=== PATIENT | male | born 1950 | race Caucasian/White ===

== ENCOUNTER 2021-03-27 01:09 | Day surgery (SDC) | payer MEDICARE, SELFPAY ==
[2021-03-18 14:25] VITALS: BMI 31.6
[2021-03-27 06:19] VITALS: BP 183/95; PULSE 91; RESP 16; TEMP 36.6; O2SAT 96; BMI 30.5
[2021-03-27 06:29] LABS: Glucose Point of Care 131 mg/dl (65-105)
[2021-03-27] MEDS: LACTATED RINGERS 1,000 ML 150 ML IV CONT (06:30)
--- NOTE | 2021-03-27 07:14 | WPDGICN ---
Assessment and Plan Assessment and plan (1) History of colon polyps: Code(s): Z86.010 - Personal history of colonic polyps Status: Acute Assessment and Plan: Patient with multiple colon polyps resected 3 years ago. Plan is for surveillance colonoscopy at this time. Further recommendations will be given after endoscopy. (2) Family history of colon cancer in mother: Code(s): Z80.0 - Family history of malignant neoplasm of digestive organs Status: Acute Assessment and Plan: Patient's mother had colon cancer for this reason follow-up colonoscopy should be performed at least at 5 year intervals GI Consult Note Consult date/time: 03/27/21 07:14 HPI: Marty Todd is a 70 year old male Presents for surveillance colonoscopy. Patient's last colonoscopy 2016 revealed multiple relatively large colon polyps. These were benign adenomas. patient currently states that his weight appetite bowel movements are normally has had no bleeding. His family history is Significant his mother had colon cancer. Review of Systems Review of Systems: All systems reviewed & are unremarkable except as noted in HPI and below PMFSH Past Medical History Medical History Arthritis Atrial fibrillation Cataract H/O: HTN (hypertension) Hepatitis C antibody test negative (~01/22/17) Pneumonia (~2015) Surgical History Surgical History History of cataract extraction Status post ablation of atrial fibrillation Status post catheter ablation of atrial fibrillation Family History Family History Mother Carcinoma of colon Other CHF (congestive heart failure), NYHA class I COPD (chronic obstructive pulmonary disease) Chest pain Coronary embolism Diabetes mellitus Family history of elevated blood lipids Family history of malignant neoplasm Hearing loss Heart disease Hyperlipidemia, unspecified Hypertension No family history of cardiovascular disease Social History Social History Smoking status: Never smoker Alcohol intake: current Drinks per week: 7 Alcohol use details: GLASSES WINE Substance use: never Substance use type: does not use Living arrangements: with family Spiritual care concerns: No Meds Home Medications and Allergies Home Medications Medication Instructions Recorded Confirmed Type cholecalciferol (vitamin D3) 25 1,000 unit PO DAILY 07/03/19 03/27/21 History mcg (1,000 unit) capsule diltiazem HCl 180 mg 180 mg PO DAILY 07/03/19 03/27/21 History capsule,extended release 24 hr rivaroxaban 20 mg tablet 20 mg PO HS 07/03/19 03/27/21 History pen needle, diabetic 31 gauge x #100 each 01/15/20 03/27/21 Rx 5/16 tizanidine 4 mg capsule 4 mg PO TID PRN #30 cap 08/13/20 03/27/21 Rx atorvastatin 20 mg tablet 20 mg PO QHS #90 tablet 10/29/20 03/27/21 Rx magnesium 200 mg tablet 200 mg PO DAILY 10/29/20 03/27/21 History semaglutide 1 mg/dose (4 mg/3 mL) 1 mg SUBCUT WEEKLY 90 Days #9.75 ml 01/29/21 03/27/21 Rx subcutaneous pen injector dapagliflozin [Farxiga] 10 mg PO QAM 03/18/21 03/27/21 History insulin glargine [Lantus Solostar 15 unit SUBCUT HS 03/18/21 03/27/21 History U-100 Insulin] metformin 2,000 mg PO QAM 03/18/21 03/27/21 History metoprolol succinate 75 mg PO BID 03/18/21 03/27/21 History quinapril 20 mg PO DAILY 03/18/21 03/27/21 History Allergies Allergy/AdvReac Type Severity Reaction Status Date / Time No Known Allergies Allergy Verified 03/27/21 06:16 Vital Signs Vital Signs - 24 hr 03/27/21 06:19 Temperature 97.8 F Pulse Rate 91 Respiratory Rate 16 Blood Pressure 183/95 H Pulse Oximetry 96 Exam Narrative: Physical exam reveals patient to be alert. Vital signs stable. HEENT exam
--- NOTE | 2021-03-27 07:23 | WPDANESEPPF ---
Anes - Initial Pre Proc Eval Procedure: Operation Date: 03/27/21 07:30 Proposed Procedures p Screening Colonoscopy - Walter Bella MD Date/Time: 03/27/21 07:23 Surgeon: Walter Bella MD Pre Op Diagnosis: hx of colon polyps Patient Data Age: 70 Gender: M Height: 1.78 m Weight: 96.5 kg Last Vital Signs Temp 97.8 F 03/27/21 06:19 Pulse 91 03/27/21 06:19 Resp 16 03/27/21 06:19 BP 183/95 H 03/27/21 06:19 Pulse Ox 96 03/27/21 06:19 Allergies Allergy/AdvReac Type Severity Reaction Status Date / Time No Known Allergies Allergy Verified 03/27/21 06:16 Home Medications Medication Instructions Recorded Confirmed Type cholecalciferol (vitamin D3) 25 1,000 unit PO DAILY 07/03/19 03/27/21 History mcg (1,000 unit) capsule diltiazem HCl 180 mg 180 mg PO DAILY 07/03/19 03/27/21 History capsule,extended release 24 hr rivaroxaban 20 mg tablet 20 mg PO HS 07/03/19 03/27/21 History pen needle, diabetic 31 gauge x #100 each 01/15/20 03/27/21 Rx 5/16 tizanidine 4 mg capsule 4 mg PO TID PRN #30 cap 08/13/20 03/27/21 Rx atorvastatin 20 mg tablet 20 mg PO QHS #90 tablet 10/29/20 03/27/21 Rx magnesium 200 mg tablet 200 mg PO DAILY 10/29/20 03/27/21 History semaglutide 1 mg/dose (4 mg/3 mL) 1 mg SUBCUT WEEKLY 90 Days #9.75 ml 01/29/21 03/27/21 Rx subcutaneous pen injector dapagliflozin [Farxiga] 10 mg PO QAM 03/18/21 03/27/21 History insulin glargine [Lantus Solostar 15 unit SUBCUT HS 03/18/21 03/27/21 History U-100 Insulin] metformin 2,000 mg PO QAM 03/18/21 03/27/21 History metoprolol succinate 75 mg PO BID 03/18/21 03/27/21 History quinapril 20 mg PO DAILY 03/18/21 03/27/21 History Laboratory Tests 03/27/21 06:21 POC Capillary Glucose 131 mg/dl H mg/dl (65-105) Patient hx anesthesia problems: none Family hx anesthesia problems: none [facility] Past Medical History Medical History Arthritis Atrial fibrillation Cataract H/O: HTN (hypertension) Hepatitis C antibody test negative (~01/22/17) Pneumonia (~2015) Surgical History Surgical History History of cataract extraction Status post ablation of atrial fibrillation Status post catheter ablation of atrial fibrillation Family History Family History Mother Carcinoma of colon Other CHF (congestive heart failure), NYHA class I COPD (chronic obstructive pulmonary disease) Chest pain Coronary embolism Diabetes mellitus Family history of elevated blood lipids Family history of malignant neoplasm Hearing loss Heart disease Hyperlipidemia, unspecified Hypertension No family history of cardiovascular disease Social History Social History Smoking status: Never smoker Alcohol intake: current Drinks per week: 7 Alcohol use details: GLASSES WINE Substance use: never Substance use type: does not use Living arrangements: with family Spiritual care concerns: No Anes - Eval Final PreProcedure Day of Procedure 03/27/21 07:23 Patient weight: obese Heart: regular rate and rhythm Lungs: clear to auscultation Airway: Mallampati scale class III Neurological: alert and oriented Last oral intake: >/= 8 hours ASA classification: III Emergent: no Anesthetic plan: proceed Anesthesia type and monitoring: general GIVS and standard monitoring Informed Consent: The patient's anesthetic plan and its attendant risks and benefits were discussed with the patient/family/POA. Questions were solicited and answers provided to the satisfaction of the patient/family/POA.
[2021-03-27 07:57] VITALS: BP 114/72; PULSE 82; RESP 17; O2SAT 98
[2021-03-27 08:07] VITALS: BP 128/85; PULSE 78; RESP 18; O2SAT 98
[2021-03-27 08:17] VITALS: BP 137/90; PULSE 75; RESP 21; O2SAT 99
[2021-03-27 08:17] LABS: Glucose Point of Care 124 mg/dl (65-105)
== END 2021-03-27 08:30 | disposition home or self-care (01) ==
PROVIDERS: PCP Family Medicine; Visit Provider Internal Medicine Gastroenterology
PROC: 0DJD8ZZ Inspection of Lower Intestinal Tract, Via Natural or Artificial Opening Endoscopic (ICD-10-PCS; CPT 45378; principal; 2021-03-27 07:30)
DX: Z12.11 Encounter for screening for malignant neoplasm of colon (principal); D12.2 Benign neoplasm of ascending colon; D12.5 Benign neoplasm of sigmoid colon; I48.20 Chronic atrial fibrillation, unspecified; I10 Essential (primary) hypertension; K64.8 Other hemorrhoids; Z80.0 Family history of malignant neoplasm of digestive organs; Z98.49 Cataract extraction status, unspecified eye; Z79.4 Long term (current) use of insulin
CPT/HCPCS: 45385; 82948; 88305; J2704; J7120

== ENCOUNTER 2022-01-10 10:03 | Emergency (ER) | payer MEDICARE, SELFPAY ==
--- NOTE | 2022-01-10 10:09 | ED.SKABFB ---
HPI - Skin/Abscess/Foreign Bdy General Chief complaint: Skin/Abscess/Foreign Body Stated complaint: red and painful spots on right leg Time Seen by Provider: 01/10/22 10:15 Source: patient, RN notes reviewed and old records reviewed Mode of arrival: ambulatory Limitations: no limitations History of Present Illness HPI narrative: 71 year old male presents to [facility] care with complaints of redness swelling and tenderness to skin on anterior aspect of right lower leg which he first noticed last evening. Patient reports no tenderness to the calf of his right leg or any warmth noted. Patient is diabetic and is on daily Xarelto for cardiac history of atrial fibrillation and cardio ablations. Patient has not acute swelling to his foot with pulses palpable. No drainage or weeping noted from his right lower leg. MD complaint: other (cellulitis right lower leg) Location: RLE (anterior aspect of right lower leg) Related Data Home Medications Medication Instructions Recorded Confirmed cholecalciferol (vitamin D3) 25 1,000 unit PO DAILY 07/03/19 12/15/21 mcg (1,000 unit) capsule diltiazem HCl 180 mg 180 mg PO DAILY 07/03/19 12/15/21 capsule,extended release 24 hr rivaroxaban 20 mg tablet (Xarelto) 20 mg PO HS 07/03/19 12/15/21 magnesium 200 mg tablet 200 mg PO DAILY 10/29/20 12/15/21 metoprolol succinate 50 mg 75 mg PO BID 03/18/21 12/15/21 tablet,extended release 24 hr Allergies Allergy/AdvReac Type Severity Reaction Status Date / Time No Known Allergies Allergy Verified 12/15/21 13:40 Review of Systems Review of Systems: CONSTITUTIONAL: Denies fever, chills, or sweats. EYES: Denies visual changes, redness, or discharge. ENT: Denies rhinorrhea, congestion, sore throat, or otalgia. CARDIOVASCULAR: Denies chest pain, palpitations, or edema. RESPIRATORY: Denies cough or dyspnea. GASTROINTESTINAL: Denies abdominal pain, nausea, vomiting, or diarrhea. GENITOURINARY: Denies dysuria or hematuria. SKIN: Positive for red rash with warmth to right lower anterior leg with no pain or swelling to calf of right leg MUSCULOSKELETAL: Denies back pain, joint pain, or myalgia. NEUROLOGIC: Denies headache, numbness, or weakness. PSYCHIATRIC: Denies anxiety or depression. PMFSH Past Medical History Medical History Arthritis Atrial fibrillation Cataract H/O: HTN (hypertension) Hepatitis C antibody test negative (~01/22/17) Pneumonia (~2016) Surgical History Surgical History History of cataract extraction Status post ablation of atrial fibrillation Status post catheter ablation of atrial fibrillation Family History Family History Mother Carcinoma of colon Other CHF (congestive heart failure), NYHA class I COPD (chronic obstructive pulmonary disease) Chest pain Coronary embolism Diabetes mellitus Family history of elevated blood lipids Family history of malignant neoplasm Hearing loss Heart disease Hyperlipidemia, unspecified Hypertension No family history of cardiovascular disease Social History Social History (Updated 01/10/22 @ 19:51 by Lucy Reyes NP) Additional smoking assessment comments: quit over 43 years ago Alcohol intake: current Drinks per week: 7 Alcohol use details: GLASSES WINE Substance use: never Substance use type: does not use Spiritual care concerns: No Comments At time of signature, agree with nursing past medical, surgical, social and family history. There is no relevant family history pertinent to the presenting complaint Exam Narrative: GENERAL: chronic ill-appearing, well-nourished, and in no acute distress. HEAD: Normocephalic, atraumatic. EYES: PERRLA and EOMI. ENT: Nares clear, no rhinorrhea or epistaxis. Mucous membranes moist.TM's normal with good light reflex, throat pink with no lesions or
[2022-01-10 10:10] VITALS: BP 149/83; PULSE 92; RESP 16; TEMP 36.2; O2SAT 97
== END 2022-01-10 10:35 | disposition home or self-care (01) ==
PROVIDERS: Emergency Provider Registered Nurse
DX: L03.115 Cellulitis of right lower limb (principal); M19.90 Unspecified osteoarthritis, unspecified site; I10 Essential (primary) hypertension; Z98.49 Cataract extraction status, unspecified eye; E11.9 Type 2 diabetes mellitus without complications; I48.91 Unspecified atrial fibrillation; Z79.01 Long term (current) use of anticoagulants
CPT/HCPCS: 99213; G0463

== ENCOUNTER 2024-03-29 08:01 | Outpatient (CLI) | payer MEDICARE, SELFPAY ==
--- NOTE | ~2024-03-29 | XR_ITS ---
AP and lateral views of the left tibia/fibula Clinical History: Status post fall, redness Findings: No acute fracture or dislocation is seen. Osseous alignment is anatomic. Joint spaces are p reserved without significant erosive or degenerative change. Soft tissues are unremarkable. Impression: Unremarkable left tib-fib radiographs. Reviewed, dictated and finalized at [facility]. Impression: Unremarkable left tib-fib radiographs.
== END 2024-03-29 08:02 ==
PROVIDERS: PCP Family Medicine; Visit Provider Nurse Practitioner
DX: M79.662 Pain in left lower leg (principal); W19.XXXA Unspecified fall, initial encounter
CPT/HCPCS: 73590

== ENCOUNTER 2024-07-17 13:41 | Outpatient (CLI) | payer MEDICARE, SELFPAY ==
--- NOTE | ~2024-07-17 | XR_ITS ---
EXAMINATION: XR hip BI 2V w AP pelvis DATE: 07/17/2024 15:03 INDICATION: Bilateral hip pain. Low back pain. TECHNIQUE: An anteroposterior view of the pelvis and 2 views of each hip were obtained. COMPARISON: None. FINDINGS: Alignment is normal. No fracture. There is moderate lumbar spondylosis. There is mild osteo arthritis of the hips. IMPRESSION: 1. Mild osteoarthritis of the hips. Reviewed, dictated and finalized at location A. SELOR/ART THERAPIST
--- NOTE | ~2024-07-17 | XR_ITS ---
EXAMINATION: XR lumbar spine min 4V DATE: 07/17/2024 15:03 INDICATION: Low back pain. TECHNIQUE: 5 views of lumbar spine were obtained. COMPARISON: Lumbar spine radiographs 09/02/2017 FINDINGS: Alignment is normal. Vertebral body heights are normal. There is moderately decreased disc height at L4-L5. There are endplate osteophytes at all levels. There is multilevel facet joint osteoa rthritis, severe in lower lumbar spine. IMPRESSION: 1. Moderate lumbar spondylosis. Reviewed, dictated and finalized at location A. OR C DEVELOPER
--- NOTE | ~2024-07-17 | XR_ITS ---
EXAMINATION: XR thoracic spine 3V DATE: 07/17/2024 15:03 INDICATION: Low back pain. TECHNIQUE: 3 views of thoracic spine on 4 radiographs were obtained. COMPARISON: None. FINDINGS: There is 9 degrees dextrocurvature of thoracic spine. There is kyphosis of thoracic spine. There is mild chronic anterior wedging of multiple mid thoracic vertebral bodies. Intervertebral disc heights are normal. There are bridging endplate osteophytes at multiple levels in the spine, consist ent with diffuse idiopathic skeletal hyperostosis (DISH). IMPRESSION: 1. DISH. Reviewed, dictated and finalized at location A. TRUCTION SCHEDULER IMPRESSION: 1. DISH.
== END 2024-07-17 13:42 | disposition home or self-care (01) ==
PROVIDERS: PCP Family Medicine; Visit Provider Family Medicine
DX: M48.14 Ankylosing hyperostosis [Forestier], thoracic region (principal); M47.896 Other spondylosis, lumbar region; M16.0 Bilateral primary osteoarthritis of hip
CPT/HCPCS: 72072; 72110; 73521

== ENCOUNTER 2025-01-02 08:08 | Outpatient (CLI) | payer MEDICARE, SELFPAY ==
--- OUTSIDE RECORDS SUMMARY | 2025-01-02 08:21 | XMS_ITS | Encounter Summary ---
Author Organization [employer] Address 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
--- OUTSIDE RECORDS SUMMARY | 2025-01-02 08:21 | XMS_ITS | Continuity of Care Document ---
Author Organization [facility] Address [address] [place] [address] [place] [address] Phone Care Team Providers Care Customer Experience Strategist Name Role Phone Melinda Mccauley Unavailable Unavailable Procedures Procedure Date Office/outpatient Visit, Est Post-op Follow-up Visit Post-op Follow-up Visit Post-op Follow-up Visit Remove Cataract, Insert Lens Eye Exam & Treatment IOLMaster Advance Directives Directive Yes / No Effective Date File Name No Information Encounters Encounter Description Practice Location Reason(s) For Visit Diagnoses Date Provider Providers Copied on Encounter Office/outpat ient Visit, Est [facility], [address] [place] [address] [address], [place], [place], [id number], tel:[phone] [facility] No Information 6-201 0 Parisa Phillips [address] , [address], [place], [address], [place]. tel:[phone] [facility], [address] [place] [address] [address], [place], [place], [id number], [place] tel:[phone] [facility] No Information 8-200 9 Parisa Phillips [address] , [address], [place], [address], [place]. tel:[phone] [facility], [address], [place], [place], [id number], tel:[phone] [facility] No Information Sep-0 1-200 9 Parisa Cheryn. [address] , [address], [place], [place], [facility], . tel:[phone] [facility], [address] [place] [address] [address], [place], [place], [id number], tel:[phone] [facility] No Information Aug-2 0-200 9 He OD Walter. [address] [facility] [facility] [address] , [address], [place], [place], [facility], . tel:[phone] [facility], [address] [place] [address] [address], [place], [place], [id number], tel:[phone] [facility] No Information Mar-1 9-200 9 Parisa Cheryn. [address] [facility] [address] , [address], [place], [place], [facility], . tel:[phone] [facility], [address] [place] [address] [address], [place], [place], [id number], tel:[phone] [facility] No Information Aug-0 4-200 9 Parisa Cheryn. [address] [facility] , [address], [place], [place], [facility], . tel:[phone] Referring Provider: Melinda Corona [address] [facility] [address], [place], [place], [facility]. tel:[phone] Family History Family Member Type Diagnosis Age At Onset No Information Payers Payer name Insurance type Covered constitution party ID Authornavyaa gretel(s) [facility] 09 [id number] Social History Type Description Quantity Date Captured Comments Sex Male Smoking Status No Information Chief Complaint And Reason For Visit No Information Reason For Referral Reason For Referral No Information History Of Present Illness Encounter Date Complaint History Of Prese nt Illness No Information Functional Status Date Functional Assessmen t No Information Instructions Date Instruction Additional Infor mation No Information Assessments Type Assessment Date No Information Patient Care Teams Name Effective Dates (start - stop) Status Members No Information
--- OUTSIDE RECORDS SUMMARY | 2025-01-02 08:21 | XMS_ITS | Referral Summary ---
Author Organization [address] [facility] [place] Address [address] [place] [phone] Care Team Providers Care Fisher Hand Line Name Role Phone FahadchanTish hirsch Primary Care Provider [phone] Gilbert Chavarria OT Unavailable Unavailable Glenda Chino MD Unavailable [phone] Encounters Date Type Department Care Team Description 11/28/2024 7:49 AM CDT - 11/28/2024 11:59 PM CDT Hospital Encounter [facility] Orthopedics and Sports Medicine [address] [place] [phone] Discharge Disposition: Discharge to home or self care 11/28/2024 11:45 AM CDT Office Visit [facility] Orthopedics and Sports Medicine [address] [place] [phone] Ruby Mathews NP Aftercare following right knee joint replacement surgery (Primary Dx) 10/31/2024 2:15 PM CDT Telemedicine [facility] Orthopedics and Sports Medicine [address] [place] [address] [address] [phone] Ruby Mathews NP Aftercare following right knee joint replacement surgery (Primary Dx) 10/23/2024 11:24 AM CDT - 10/23/2024 11:59 PM CDT Hospital Encounter [facility] [address] [place] [address] Status post total right knee replacement; Right calf pain; Calf tenderness Discharge Disposition: Discharge to home or self care 10/23/2024 Telephone [facility] Orthopedics and Sports Medicine [address] [place] [address] [address] [phone] Glenda Chino MD 10/10/2024 Orders Only [facility] Orthopedics and Sports Medicine [address] [place] [phone] Glenda Chino MD S/P total knee arthroplasty, right (Primary Dx) 10/10/2024 Telephone [facility] Orthopedics and Sports Medicine [address] [place] [address] [address] [place] [phone] Glenda Chino MD 10/09/2024 8:30 AM CDT - 10/09/2024 11:00 AM CDT Surgery [facility] [address] [place] [address] Glenda Chino MD Right Total Knee Arthroplasty 10/09/2024 8:21 AM CDT Anesthesia Event [facility] [address] [place] [address] Thierry Zepeda MD [place], Pk Rivera MD 10/09/2024 6:44 AM CDT - 10/09/2024 3:50 PM CDT Hospital Encounter [facility] [address] [place] [address] Glenda Chino MD Primary osteoarthritis of right knee (Primary Dx) Discharge Disposition: Discharge to home or self care 10/06/2024 Telephone [facility] Orthopedics and Sports Medicine [address] [place] [phone] Glenda Chino MD 10/04/2024 Documentation [facility] Orthopedics and Sports Medicine [address] [place] [address] [address] [phone] lGenda Chino MD Surgery Clearance from Last 3 Months Allergies No known active allergies Medications semaglutide (OZEMPIC) 2 mg/dose (8 mg/3 mL) pen injector injection Inject 2 mg under the skin every 7 days Active Farxiga 10 mg tablet Take 1 tablet (10 mg total) by mouth daily 1 Active metFORMIN XR (GLUCOPHAGE XR) 500 mg 24 hr tablet Take 1 tablet (500 mg total) by mouth 2 (two) times a day 1 Active insulin glargine,hum.re c.anlog (LANTUS SOLOSTAR U-100 INSULIN SUBQ) Inject 25 Units under the skin nightly 2 Active cyclobenzaprine (FLEXERIL) 10 mg tablet TAKE 1 TABLET BY MOUTH THREE TIMES A DAY NEEDED FOR MUSCLE SPASM 3 Active glucose 4 gram chewable tablet TAKE 4 TABLETS BY MOUTH EVERY 15 MINUTES NEEDED UNTIL SYMPTOMS OF LOW BLOOD SUGAR ARE CONTROLLED 3 Active Baqsimi 3 mg/actuation spray,non-aeros ol 3 Active lisinopriL (PRINIVIL,ZESTR IL) 20 mg tablet Take 1 tablet (20 mg total) by mouth daily 3 Active BD Ultra-Fine Short Pen Needle 31 gauge x 5/16 needle USE 1 NEEDLE ONCE DAILY 3 Active atorvastatin (LIPITOR) 20 mg tablet Take 1 tablet (20 mg total) by mouth daily 3 Active rivaroxaban (Xarelto) 20 mg tablet Take 1 tablet (20 mg total) by mouth daily with dinner 90 tablet 3 4 Active multivitamin with minerals tablet Take 1 tablet by mouth daily Active ferrous sulfate ER 324 mg (65 mg iron) EC tabletIndicatio ns:Iron Deficiency Anemia Take 65 mg by mouth daily with breakfast Active ascorbic acid (ascorbic acid with maninder hips) 500 mg tablet,chewable Acti ve cholecalciferol , vitamin D3, 1,000 unit tablet,chewable Take by mouth Active methylcellulose , laxative, (CITRUCEL) 500 mg tablet 1 tablet (500 mg total) 2 (two) times a day Active senna-docusate (PERICOLACE) 8.6-50 mg Take 1 tablet by mouth 2 (two) times a day as needed for constipation 60 tablet 2 5 Active ondansetron (ZOFRAN) 8 mg tabletIndicatio ns:Prevention of Post-Operative Nausea and Vomiting Take 1 tablet (8 mg total) by mouth every 8 (eight) hours as needed for nausea or vomiting 20 tablet 2 Active Additional Information Patient not taking.Reported on 11/28/2024 traMADoL (ULTRAM) 50 mg tablet Take 1-2 tablets every 4-6 hours as needed for pain. 30 tablet Active metoprolol XL (TOPROL-XL) 100 mg 24 hr tablet Take 1 tablet (100 mg total) by mouth 2 (two) times a day Active Active Problems Problem Noted Date Diagnosed Date Primary osteoarthritis of right knee 07/13/2024 Atrial flutter 11/01/2018 Paroxysmal atrial fibrillation 11/01/2018 Social History Tobacco Use Types Packs/Day Years Used Date Smoking Tobacco: Never Smokeless Tobacco: Never Tobacco Cessation:Counseling Given: Not Answered Alcohol Use Standard Drinks/Week Comments Yes 7 (1 standard drink = 0.6 oz pur e alcohol) AUDIT-C Answer Date Recorded Q1: How often do you have a drink containing alc ohol? 2-4 times a month 10/09/2024 Q2: How many drinks containi ng alcohol do you have on a typical day when you are drinking? 1 or 2 10/09/2024 Q3: How often do you have si x or more drinks on one occasion? Never 10/09/2024 Personal Safety Answer Date Recorded Have you ever been in or are you currently in a harmful physical or emotional relationship or is someone making you feel afraid or unsafe? 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 Sexual Orientation Straight 06/15/2021 7: 53 AM POULTRY EVISCERATOR Last Filed Vital Signs Vital Sign Reading Time Taken Comments Blood Pressure 167/92 11/28/2024 11:39 AM CDT Pulse 91 11/28/2024 11:39 AM CDT Temperature 36.1 C (97 F) 10/09/2024 2:43 PM CDT Respiratory Rate 18 10/09/2024 2:43 PM CDT Oxygen Saturation 94% 10/09/2024 2:43 PM CDT Inhaled Oxygen Concentration - - Weight 96.2 kg (212 lb) 11/28/2024 11:39 AM CDT Height 175.3 cm (5' 9) 11/28/2024 11:39 AM CDT Body Mass Index 31.31 11/28/2024 11:39 AM CDT Plan of Treatment Not on file Medical Devices Implanted Type Area Biscuit Packer Device Identifier Shelf Expiration Date Model / Serial / Lot [employer] Tibial Baseplate Knee Porous Fixed Attune Affixium Size 8 Titanium [id number] - [id number] Implanted:Qty: 1 on 10/09/2024 by Glenda Chino MD at [facility] Right: Knee [employer] 03/01/2034 [id number] / / [id number] [employer] Attune Cruciate Retain Cementless Knee Right 7 Component Femoral [id number] - [id number] Implanted:Qty: 1 on 10/09/2024 by Glenda Chino MD at [facility] Right: Knee [employer] 07/01/2034 [id number] / / [id number] [employer] Insert Attune Right Medial Stabilized Size 7 7mm [id number] - [id number] Implanted:Qty: 1 on 10/09/2024 by Glenda Chino MD at [facility] Right: Knee [employer] 08/01/2032 [id number] / / [id number] Procedures Procedure Name Priority Date/Time Associated Diagnosis Comments XR KNEE RIGHT 3 VIEWS Schedule Routine, Read Routine (OP Routine) 11/28/2024 11:35 AM CDT Aftercare following right knee joint replacement surgery US VEIN DUPLEX LOWER EXTREMITY RIGHT LIMITED Schedule REMI, Read REMI (Appt Today, Awaiting Results) 10/23/2024 11:54 AM CDT Status post total right knee replacement Right calf pain Calf tenderness SURGICAL PATHOLOGY Routine 10/09/2024 11:42 AM CDT Primary osteoarthritis of right knee XR KNEE RIGHT 1 OR 2 VIEWS IP Routine 10/09/2024 10:17 AM CDT POCT GLUCOSE DEVICE Routine 10/09/2024 10:10 AM CDT ANESTHESIA SPINAL BLOCK Routine 10/09/2024 8:36 AM CDT ARTHROPLASTY TOTAL KNEE 10/09/2024 8:01 AM CDT Primary osteoarthritis of right knee Special Needs Robotic,[ Depuy- Attune], Velys, Cooling [facility], 1 liter beta rinse, Pt to go home POCT GLUCOSE DEVICE Routine 10/09/2024 7 :11 AM CDT APTT STAT 10/09/2024 7:10 AM CDT PROTIME-INR STAT 10/09/2024 7:10 AM CDT from Last 3 Months Results * XR Knee Right 3 Views (11/28/2024 11:35 AM CDT) Anatomical Region Laterality Modality Lower Extremities, Knee Right Digital Radiography Narrative 11/28/2024 1:06 PM CDT X-ray of the right knee viewed and interpreted. There is no evidence of fracture, subluxation, or bony abnormality. Knee arthroplasty in good position with no interval change. us Ruby Mathews NP IMG XR PROCEDURES Final Result * US VEIN DUPLEX LOWER EXTREMITY RIGHT LIMITED, UNILATERAL (10/23/2024 11:54 AM CDT) Anatomical Region Laterality Modality Vascular Right Ultrasound 10/24/2024 3:32 AM CDT Narrative 10/24/2024 3:33 AM CDT EXAM DESCRIPTION: US VEIN DUPLEX LOWER EXTREMITY RIGHT LIMITED, UNILATERAL REASON FOR STUDY: s/p TKA RT knee with calf swelling, tenderness TECHNIQUE: Duplex scan using the B-mode, spectral Doppler, and color-flow Doppler of the deep venous system of the right lower extremity was performed. Images stored on PACS. COMPARISON: None. FINDINGS: The common femoral, common femoral-saphenous vein confluence, visualized profunda femoral, superficial femoral, and popliteal veins are readily compressible with no intraluminal thrombus on townsend scale images. There is normal color and spectral Doppler signal, including augmentation. Greater saphenous vein appears patent. Visualized calf veins are patent. IMPRESSION: No right lower extremity deep venous thrombosis. THIS IS AN ELECTRONICALLY VERIFIED FINAL REPORT 10/24/2024 3:33 AM - Electronically signed by Yanet Herman M.D. SN: SN Report ID: [id number] Reading Location: [id number] Procedure Note Yanet Herman MD - 10/24/2024 EXAM DESCRIPTION: US VEIN DUPLEX LOWER EXTREMITY RIGHT LIMITED,UNILATERAL REASON FOR STUDY: s/p TKA RT knee with calf swelling, tenderness TECHNIQUE: Duplex scan using the B-mode, spectral Doppler, and color-flow Doppler of the deep venous system of the right lower extremity was performed. Images stored on PACS. COMPARISON: None. FINDINGS: The common femoral, common femoral-saphenous vein confluence, visualized profunda femoral, superficial femoral, and popliteal veins are readily compressible with no intraluminal thrombus on townsend scale images. There is normal color and spectral Doppler signal, including augmentation. Greater saphenous vein appears patent. Visualized calf veins are patent. IMPRESSION: No right lower extremity deep venous thrombosis. THIS IS AN ELECTRONICALLY VERIFIED FINAL REPORT 10/24/2024 3:33 AM - Electronically signed by Yanet Herman M.D. SN: SN Report ID: [id number] Reading Location: [id number] Glenda Chino MD [facility] US PROCEDURES Final Result * Surgical pathology (10/09/2024 11:42 AM CDT) Tissue specimen (specimen) (Bone Fragment(s),) 10/09/2024 9:09 AM CDT Narrative PATHOLOGY [facility] - 10/11/2024 6:40 PM CDT EPIC results best viewed via link to PDF [facility] Department of Pathology [address] [place] [id number] Note to Patients: This report may contain a detailed description of human tissue sent by a health care provider to the laboratory for pathologic evaluation. The content of this report is essential for diagnosis and may provide important critical findings. This information may be unfamiliar to patients to review without a medical professional present. It is advised that the patient review this report in the presence of a health care provider who can answer questions and explain the details. Final Report Patient Name: GLENDA TODD Address: [address] [place] [address] , [place] [address] Gender: M : 1950 (Age: 74) Service: Surgery Location: [facility] Hospital #: [id number] Patient Type: [facility] Taken: 10/09/2024 Received: 10/09/2024 Accessioned: 10/09/2024 Reported: 10/11/2024 Physician(s):Dr. Glenda Chino M.D. Diagnosis: Knee, right, total knee arthroplasty: - Degenerative joint disease, marked. Daren Larios M.D. Report Electronically Reviewed and Signed Out By Daren Larios M.D. 10/11/2024 18:40:49 Specimen(s) Received: A: Right knee bone and tissue Microscopic Description: Microscopic examination of bone and soft tissue from the right knee, including the decalcified section shows marked degenerative changes that include erosion of the extensive articular cartilage as well as clustering and fibrillation of chondrocytes. The marrow space is replaced by mature adipose tissue with areas of reactive fibrosis and sections of the soft tissue show mild reactive changes including synovial hyperplasia. There is no evidence of malignancy. Clinical History: Osteoarthritis of right knee. Right total knee arthroplasty - robotic. Gross Description: The container is labeled GLENDA TODD and right knee. It is a 7 x 6 x 4 cm in aggregate of irregularly-shaped fragments of bone and an approximate 10 cc aggregate of soft tissue consisting of adipose tissue, portions of menisci and some synovium. Recognizable pieces of bone include the tibial plateau and portions of femoral condyles. Some of the bone fragments are covered by articular cartilage showing varying degrees of degenerative changes that include eburnation, pitting and roughened granularity. Decalcified and represented in two cassettes. López Alvarado R.N., P.AAnca/Daren Larios M.D. REPORT IMAGES AND SCANNED DOCUMENTS, IF INCLUDED, ONLY VIEWABLE IN PDF VERSION OF REPORT The performance characteristics of some immunohistochemical stains, fluorescence in-situ hybridization tests and immunophenotyping by flow cytometry cited in this report (if any) were determined by the Surgical Pathology Department at [facility] as part of an ongoing quality control scientist program and in compliance with federally mandated regulations drawn from the Clinical Laboratory Improvement Act of 1988 (CLIA '88). Some of these tests rely on the use of analyte specific reagents and are subject to specific labeling requirements by the US Food and Drug Administration. Such diagnostic tests may only be performed in a facility that is certified by the Department of Health and Human Services as a high complexity laboratory under CLIA '88. The FDA has determined that such clearance or approval is not necessary. This test is used for clinical purposes. It should not be regarded as investigational or for research. Nevertheless, federal rules concerning the medical use of analyte specific reagents require that the following disclaimer be attached to the report: This test was developed and its performance characteristics determined by the Surgical Pathology Department [facility]. It has not been cleared or approved by the U. S. Food and Drug Administration. Note for decalcified specimens: This assay has not been validated on decalcified tissues. Results should be interpreted with caution given the possibility of false negativity on decalcified specimens Glenda Chino MD LAB PATHOLOGY ORDERABLES Final Result PATHOLOGY [facility] 1 [place] [address] * XR Knee Right 1 or 2 View (10/09/2024 10:17 AM CDT) Anatomical Region Laterality Modality Lower Extremities, Knee Right Computed Radiography 10/11/2024 10:1 5 PM CDT Narrative 10/11/2024 10:15 PM CDT EXAM DESCRIPTION: XR KNEE RIGHT 1 OR 2 VIEWS REASON FOR STUDY: In PACU status post right total knee arthroplasty Post op TECHNIQUE: There are 2 radiographic view(s) of the right knee . COMPARISON: Prior exam 07/13/2024. FINDINGS: Patient is status post right knee arthroplasty of the femoral tibial components. No periprosthetic fracture. Expected postoperative soft tissue change. IMPRESSION: Patient is status post right knee arthroplasty with no radiographic evidence of complication. THIS IS AN ELECTRONICALLY VERIFIED FINAL REPORT 10/11/2024 10:15 PM - Electronically signed by Anselmo Padilla M.D. MJ: FLORINDA Report ID: [id number] Reading Location: [id number] Procedure Note Anselmo Padilla MD - 10/11/2024 EXAM DESCRIPTION: XR KNEE RIGHT 1 OR 2 VIEWS REASON FOR STUDY: In PACU status post right total knee arthroplasty Post op TECHNIQUE: There are 2 radiographic view(s) of the right knee . COMPARISON: Prior exam 07/13/2024. FINDINGS: Patient is status post right knee arthroplasty of the femoral tibial components. No periprosthetic fracture. Expected postoperative softtissue change. IMPRESSION: Patient is status post right knee arthroplasty with no radiographicevidence of complication. THIS IS AN ELECTRONICALLY VERIFIED FINAL REPORT 10/11/2024 10:15 PM - Electronically signed by Anselmo Padilla M.D. MJ: FLORINDA Report ID: [id number] Reading Location: [id number] us Ruby Mathews FACING SLITTER IMG XR PROCEDURES Final Result * POCT glucose (10/09/2024 10:10 AM CDT) Glucose, POC 149 70 - 199 mg/dL Blood 10/09/2024 10:1 0 AM CDT 10/09/2024 10:10 AM CDT us Glenda Chino MD LAB POCT ORDERABLES - DE VICE Final Result [facility] [facility] 1 [facility] Department of Laboratories [place], [place] [id number] * Spinal Block (10/09/2024 8:36 AM CDT) Narrative Isaias Silverman CRNA - 10/09/2024 8:36 AM CDT Isaias Silverman CRNA 10/09/2024 8:36 AM Spinal Block Patient location: OR Reason for block: primary anesthetic Staff: Supervising provider: Thierry Zepeda MD Placed by: AUDIO VISUAL SPECIALIST:Isaias Silverman CRNA Procedure prep: Preprocedure checklist: patient identified, procedure contraindications assessed, site marked, procedure consent, surgical consent, IV checked, risks, benefits and alternatives discussed, monitors and equipment checked and timeout performed Patient position: sitting Procedure performed while patient: sedate with meaningful contact Monitoring: oximetry and blood pressure Prep solution: chlorhexadine/alcohol PPE: provider hat/mask, sterile gloves and sterile drape Skin infiltrated with lidocaine 1%: yes Spinal: Approach: midline Introducer used: no Location: L3-4 Spinal injection: CSF demonstrated, no aspiration of heme and no paresthesias noted Number of attempts: 1 Spinal Needle: Needle type: Abby Needle gauge: 22 G Needle length: 9 cm Assessment: Sensory deficit - left: full eval pending Sensory deficit - right: full eval pending Events: patient tolerated procedure well with no complications us Thierry Zepeda MD ANESTHESIA ORDERABLES Final Result * POCT glucose (10/09/2024 7:11 AM CDT) Glucose, POC 137 70 - 199 mg/dL Blood 10/09/2024 7:11 AM CDT 10/09/2024 7:11 AM CDT us Glenda Chino MD LAB POCT ORDERABLES - DE VICE Final Result [facility] [place] Department [place] [address] * aPTT (10/09/2024 7:10 AM CDT) aPTT 34 28 - 38 sec [facility] Comment: Interpretive Data Heparin therapeutic range: 66.0 - 100.0 seconds. Range based on correlation with therapeutic heparin activity range of 0.3 - 0.7 Units/mL. Current interpretive data was last revised on 2023. Blood 10/09/2024 7:10 AM CDT 10/09/2024 7:16 AM CDT Glenda Chino MD LAB BLOOD ORDERABLES Fin al Result Performing Organization Address [facility] Co de Phone Number [facility] [address] [facility] [place] [address] * Protime-INR (10/09/2024 7:10 AM CDT) PT 10.7 9.7 - 13.0 sec [facility] INR 0.99 0.90 - 1.20 [facility] Comment: Interpretive data Oral anticoagulant therapeutic ranges: Venous thromboembolism prophylaxis or treatment: 2.0-3.0 CARDIOLOGY Standard range: 2.0-3.0 High-intensity range: 2.5-3.5 Refer to indication-specific guidelines for appropriate target ranges for prosthetic heart valve replacement. Current interpretive data was last revised on 2019. Blood 10/09/2024 7:10 AM CDT 10/09/2024 7:16 AM CDT Glenda Chino MD LAB BLOOD ORDERABLES Fin al Result Performing Organization Address [facility] Co de Phone Number [facility] [address] [facility] [place] [address] from Last 3 Months Insurance [employer] MEDICARE [facility]LY [facility] MEDICARE Care Teams Fisher Hand Line Relationship Specialty Start Date End Date Tish Franks DO PCP - General Family Medicine 04/18/20 Gilbert Chavarria OT Occupational Therapist Occupational Therapy 10/06/24 Glenda Chino MD [address] [place] [address] [place] [address] Surgeon Orthopedic Surgery 10/09/24
--- OUTSIDE RECORDS SUMMARY | 2025-01-02 08:21 | XMS_ITS | Clinical Summary ---
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 Gender Identity Not on file Sexual Orientation Not on file Plan of Treatment Health Maintenance Due Date Last Done Comments DTAP/TDAP/TD VACCINES (1 - Tdap) 1969 COLORECTAL SCREENING 1995 Colorectal Cancer Screening 1995 FIT-DNA Q 3 years 1995 FIT/FOBT Q 1 year 1995 Flex Sig/CT Colonography Q 5 years 1995 PNEUMOCOCCAL VACCINE 50+ YEARS (1 of 1 - PCV) 04/25/20 00 ZOSTER VACCINE (1 of 2) 2000 INFLUENZA VACCINE (#1) 2024 RSV VACCINE (60+ or ) (1 - 1-dose 75+ series) 2025 Care Teams Vp Strategy Relationship Specialty Start Date End Date Gerson Tamez MD [address] [place] [address] PCP - General 06/16/07
--- OUTSIDE RECORDS SUMMARY | 2025-01-02 08:21 | XMS_ITS | Clinical Summary ---
Author Organization [facility] [address] [place] [address] Professional [place] Address [address] [place] [phone] Care Team Providers Care Games Dealer Name Role Phone FahadchanTish hirsch Primary Care Provider [phone] Gilbert Chavarria OT Unavailable Unavailable Glenda Chino MD Unavailable Allergies No known active allergies Medications semaglutide (OZEMPIC) 2 mg/dose (8 mg/3 mL) pen injector injection Inject 2 mg under the skin every 7 days 1 Active Farxiga 10 mg tablet Take 1 [...] Ultra-Fine Short Pen Needle 31 gauge x /16 needle USE 1 NEEDLE ONCE DAILY 3 [...] for nausea or vomiting 20 tablet 2 5 Active Additional Information Patient not taking.Reported on 11/28/2024 traMADoL (ULTRAM) 50 mg tablet Take 1-2 tablets every 4-6 hours as needed for pain. 30 tablet 5 Active metoprolol XL (TOPROL-XL) 100 mg 24 hr tablet Take 1 tablet (100 mg total) by mouth 2 (two) times a day 5 Active Active Problems Problem Noted Date Diagnosed Date Primary osteoarthritis of right knee 07/13/2024 Atrial flutter 11/01/2018 Paroxysmal atrial fibrillation 11/01/2018 Encounters Date Type Department Care Team Description 11/28/2024 11:45 AM CDT Office Visit [facility] [address] [place] [phone] Ruby Mathews NP Aftercare following right knee joint replacement surgery (Primary Dx) 11/28/2024 7:49 AM CDT - 11/28/2024 11:59 PM CDT Hospital Encounter [facility] [address] [place] [address] [address] [place] [address] Discharge Disposition: Discharge to home or self care 10/31/2024 2:15 PM CDT Telemedicine [facility] [address] [place] [address] [address] [place] [address] Ruby Mathews NP Aftercare following right knee joint replacement surgery (Primary Dx) 10/23/2024 11:24 AM CDT - 10/23/2024 11:59 PM CDT Hospital Encounter [facility] [address] [place] [address] Status post total right knee replacement; Right calf pain; Calf tenderness Discharge Disposition: Discharge to home or self care 10/23/2024 Telephone [facility] Medicine [address] [place] [address] [address] [place] [address] Glenda Chino MD 10/10/2024 Orders Only [facility] [address] [place] [address] [place] [phone] Glenda Chino MD S/P total knee arthroplasty, right (Primary Dx) 10/10/2024 Telephone [facility] [address] [place], [place] [address] [place] [address] Glenda Chino MD 10/09/2024 8:30 AM CDT - 10/09/2024 11:00 AM CDT Surgery [facility] [address] [place] [address] Glenda Chino MD Right Total Knee Arthroplasty 10/09/2024 8:21 AM CDT Anesthesia Event [facility] [address] [place] [address] Thierry Zepeda MD McDowell, Juri Osmell, MD 10/09/2024 6:44 AM CDT - 10/09/2024 3:50 PM CDT Hospital Encounter [facility] [address] [place] [address] Glenda Chino MD Primary osteoarthritis of right knee (Primary Dx) Discharge Disposition: Discharge to home or self care 10/06/2024 Telephone [facility] [address] [facility] [address] [place] [phone] Glenda Chino MD 10/04/2024 Documentation [facility] [address] [facility] [address] [place] [phone] Glenda Chino MD Surgery Clearance from Last 3 Months Surgical History Surgery Date Site/Laterality Comments CARDIAC ELECTROPHYSIOLOGY MA PPING AND ABLATION 5 times CATARACT EXTRACTION 08/02/2008 - 08/01/2009 Medical History Medical History Date Comments Hypertension Hypertension Hypercholesteremia Arthritis 2010 Cataract 2008 Diabetes mellitus (HCC) 1987 Stroke (HCC) 2018 Awareness under anesthesia Arrhythmia a fib Pneumonia Type 2 diabetes mellitus (HCC) Cancer (HCC) melanoma posteri or neck Family History Medical History Relation Name Comments Arthritis Father Glenda Todd Heart attack Father Glenda Todd Myocardial Infarction; Cause of : Myocardial Infarction Heart disease Father Glenda Todd Hypertension Father Glenda Todd Arthritis Mother Britany Todd Cancer Mother Britany Todd Heart disease Mother Britany Todd Heart failure Mother Britany Todd Conges tive Heart Failure; Cause of : Congestive Heart Failure Hypertension Mother Britany Todd Relation Name Status Comments Father Glenda Todd Mother Britany Todd Social History Tobacco Use Types Packs/Day Years [...] on file Legal 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 Gender Identity Male 06/15/2021 7:53 AM 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 Sexual Orientation Straight 06/15/2021 7: 53 AM MEAT AND POULTRY INSPECTOR Obstetrics History Last Filed Vital Signs Vital Sign Reading [...] 11/28/2024 11:39 AM CDT Plan of Treatment Health Maintenance Due Date Last Done Comments Colon Cancer Screening-Colonoscopy 1950 Depression Screening 1950 Hepatitis C Screening 1950 DTaP/Tdap/Td Vaccine (1 - Tdap) 1961 Hepatitis B Screening 1968 Pneumococcal vaccine 65+ (1 of 1 - PCV) 2000 Zoster Vaccine (1 of 2) 2000 Well Visit 65+ 2015 Influenza Vaccine (Season Ended) 2025 05/25/20 19, 06/01/2018 Fall Risk Assessment 09/28/2025 09/28/2024 Medical Devices Implanted Type Area Hand Sample Maker Device Identifier Shelf Expiration Date Model / Serial / Lot [employer] Tibial Baseplate Knee Porous Fixed Attune Affixium Size 8 Titanium [id number] - [id number] Implanted:Qty: 1 on 10/09/2024 by Glenda Chino MD at [facility] Right: Knee [employer] 03/01/2034 [id number] / / [id number] [employer] Attune Cruciate Retain Cementless Knee Right 7 Component Femoral [id number] - [id number] Implanted:Qty: 1 on 10/09/2024 by Glenda Chino MD at [facility] Right: Knee [employer] 07/01/2034 [id number] / / [id number] [employer] Insert Attune Right Medial Stabilized Size 7 7mm [id number] - [id number] Implanted:Qty: 1 on 10/09/2024 by Glenda Chino MD at [facility] Right: Knee [employer] 08/01/2032 [id number] / / [id number] Procedures Procedure Name Priority Date/Time Associated Diagnosis [...] Special Needs Robotic,[ Depuy- Attune], Velys, Cooling Unit-[facility], 1 liter beta rinse, Pt to go [...] with no interval change. us Ruby Mathews INSURANCE TERRITORY MANAGER IMG XR PROCEDURES Final Result * US [...] Electronically signed by Yanet Herman M.D. SN: Report ID: [id number] Reading Location: [id number] Procedure Note Ynaet Herman MD - 10/24/2024 EXAM DESCRIPTION: US [...] Yanet Herman M.D. SN: SN Report ID: [id number] Reading Location: [place] [address] Glenda Chino MD [facility] PROCEDURES Final Result * Surgical pathology (10/09/2024 11:42 AM CDT) Tissue specimen (specimen) (Bone Fragment(s),) 10/09/2024 9:09 AM CDT Narrative PATHOLOGY [facility] - 10/11/2024 6:40 PM CDT EPIC results best viewed via link to PDF [facility] Department of Pathology [address] [place] [address] Note to Patients: This report may contain [...] Final Report Patient Name: GLENDA TODD Address: [address] [place] [address] , [place] [address] Gender: M : 1950 (Age: 74) Service: Surgery Location: [facility] Hospital #: [id number] Patient Type: [facility] Taken: 10/09/2024 Received: 10/09/2024 Accessioned: 10/09/2024 [...] represented in two cassettes. López Alvarado R.N., P.A./Daren Larios M.D. REPORT IMAGES AND SCANNED DOCUMENTS, IF INCLUDED, ONLY VIEWABLE IN PDF VERSION OF REPORT The performance characteristics of some immunohistochemical stains, fluorescence in-situ hybridization tests and immunophenotyping by flow cytometry cited in this report (if any) were determined by the Surgical Pathology Department at [facility] as part of an ongoing production quality manager program and in compliance with federally mandated [...] characteristics determined by the Surgical Pathology Department [facility]. It has not been cleared or approved by the U. S. Food and Drug Administration. Note for decalcified specimens: This assay has not been validated on decalcified tissues. Results should be interpreted with caution given the possibility of false negativity on decalcified specimens Glenda Chino MD LAB PATHOLOGY ORDERABLES Final Result PATHOLOGY [facility] [address] [place] [address] * XR Knee Right 1 or 2 [...] Anselmo Padilla M.D. MJ: FLORINDA Report ID: [id number] Reading Location: [id number] Procedure Note Anselmo Padilla MD - 10/11/2024 [...] Anselmo Padilla M.D. MJ: FLORINDA Report ID: [id number] Reading Location: [place] [address] us Ruby Mathews INSURANCE TERRITORY MANAGER IMG XR PROCEDURES Final Result * POCT glucose (10/09/2024 10:10 AM CDT) Glucose, POC 149 70 - 199 mg/dL Blood 10/09/2024 10:1 0 AM CDT 10/09/2024 10:10 AM CDT us Glenda Chino MD LAB POCT ORDERABLES - DE VICE Final Result [facility] [place] [address] [facility] [place] [address] * Spinal Block (10/09/2024 8:36 AM CDT) Narrative Isaias Silverman CRNA - 10/09/2024 8:36 AM CDT Isaias Silverman CRNA 10/09/2024 8:36 AM Spinal Block Patient location: OR Reason for block: primary anesthetic Staff: Supervising provider: Thierry Zepeda MD Placed by: CRACKER SPRAYER:Isaias Silverman CRNA Procedure prep: Preprocedure checklist: patient [...] patient tolerated procedure well with no complications Thierry Zepeda MD ANESTHESIA ORDERABLES Final Result * POCT glucose (10/09/2024 7:11 AM CDT) Glucose, POC 137 70 - 199 mg/dL Blood 10/09/2024 7:11 AM CDT 10/09/2024 7:11 AM CDT Glenda Chino MD LAB POCT ORDERABLES - DE VICE Final Result Performing Organization Address [facility] Co de Phone Number [facility] [address] [place] [address] [place] [address] * aPTT (10/09/2024 7:10 AM CDT) aPTT 34 28 - 38 sec [facility] Comment: Interpretive Data Heparin therapeutic range: 66.0 - 100.0 seconds. Range based on correlation with therapeutic heparin activity range of 0.3 - 0.7 Units/mL. Current interpretive data was last revised on 2023. Blood 10/09/2024 7:10 AM CDT 10/09/2024 7:16 AM CDT Glenda Chino MD LAB BLOOD ORDERABLES Fin al Result Performing Organization Address [facility] Co de Phone Number [facility] [address] [facility] [place] [address] * Protime-INR (10/09/2024 7:10 AM CDT) PT 10.7 9.7 - 13.0 sec [facility] INR 0.99 0.90 - 1.20 [facility] Comment: Interpretive data Oral anticoagulant therapeutic ranges: Venous thromboembolism prophylaxis or treatment: 2.0-3.0 CARDIOLOGY Standard range: 2.0-3.0 High-intensity range: 2.5-3.5 Refer to indication-specific guidelines for appropriate target ranges for prosthetic heart valve replacement. Current interpretive data was last revised on 2019. Blood 10/09/2024 7:10 AM CDT 10/09/2024 7:16 AM CDT us Glenda Chino MD LAB BLOOD ORDERABLES Fin al Result [facility] [address] [facility] [place] [address] from Last 3 Months Insurance [facility] MEDICARE [facility] MEDICARE Care Teams Games Dealer Relationship Specialty Start Date End Date Tish FranksDO PCP - General Family Medicine 04/18/20 Gilbert Chavarria OT Occupational Therapist Occupational Therapy 10/06/24 Glenda Chino MD [address] [facility] [address] [place] [address] [place] [address] Surgeon Orthopedic Surgery 10/09/24
--- NOTE | 2025-01-23 12:13 | WPDHOMESLEEP ---
Sleep Study - Home Unattended Date of Study: 01/02/25 Ordering Provider: Tish Franks DO Interpreting Provider: Dara Brunner DO Home Sleep Study Type: Watch PAT Height: 1.75 m Weight: 93.44 kg Body Mass Index: 30.4 Neck Circumference (inches): 16 [place]: 8 Reason for Sleep Study Trouble falling and staying asleep Sleep History The patient is a 74-year-old male who had a sleep study ordered by his primary care physician for evaluation of sleep apnea. The patient admits to having difficulty falling asleep, staying asleep, and interruptions in breathing while asleep. The patient denies snoring loudly. He does choke or gasp at night. He denies having trouble breathing on his back. He denies morning headaches. He does have a dry or sore mouth/throat in the morning. He denies nocturnal heartburn. He does urinate twice throughout the night. He does have difficulty returning to sleep if he wakes up throughout the night. He denies any hypnotic or sedative use. He denies feeling anxious about sleep. He does feel tired or sleepy during the day. He does feel tired in the morning. He denies having the urge to fall asleep during the day. He denies feeling drowsy while driving. He denies sleep paralysis, cataplexy, and hypnagogic/hypnopompic hallucinations. He denies clenching or grinding his teeth. He denies kicking or jerking his legs excessively. He denies having a restless feeling in his legs. He goes to bed at 10 PM every night. It takes him 2 hours to fall asleep. He gets 5 hours of sleep on workdays and 6 hours on his days off. His sleep is a little more restorative on his days off. He does take planned naps in the afternoon that are less than 1 hour. The naps are restorative. He denies dream enactment behavior. He denies sleepwalking. He consumes 1 to 2 cups of a caffeinated beverage per day. He consumes 1 alcoholic beverage 3 to 4 nights per week. He denies tobacco use. He exercises 1 to 2 nights per week. [facility] Past Medical History Medical History Cellulitis of leg, right History of colon polyps BMI greater than 30 Type 2 diabetes mellitus with hyperglycemia, with long-term current use of insulin Dyslipidemia H/O: HTN (hypertension) Cataract Arthritis Folliculitis Congenital pes planus, unspecified foot Lumbar spondylosis Metabolic syndrome Testicular hypofunction Atrial fibrillation Pneumonia (~2015) Hepatitis C antibody test negative (~01/22/17) Surgical History Surgical History History of total right knee replacement Hx of oral surgery 07/2022 History of cataract extraction Status post catheter ablation of atrial fibrillation Status post ablation of atrial fibrillation Family History Family History Mother Carcinoma of colon Other CHF (congestive heart failure), NYHA class I COPD (chronic obstructive pulmonary disease) Chest pain Coronary embolism Diabetes mellitus Family history of elevated blood lipids Family history of malignant neoplasm Hearing loss Heart disease Hyperlipidemia, unspecified Hypertension No family history of cardiovascular disease Social History Social History Smoking status: Never smoker Tobacco type: cigars Additional smoking assessment comments: quit over 50 years ago Alcohol intake: current Drinks per week: 5 Alcohol use details: GLASSES WINE Substance use: never Substance use type: does not use Lack of Transportation: No Lack of Food: Never True Current Housing: I Have Housing Concerned About Future Housing: No Difficulty Paying Gas/Electric Bills: No Difficulty Paying for Meds: No Currently Unemployed: No Education: Master's Degree or Higher Difficulty w/ Childcare or Family Care: No Living arrangements: with family Occupation/Education: retired Gender identity (if verbalized by the patient): Male Spiritual care concerns: No Medications Home Medications ?Medication ?Instructions ?Recorded ?Confirmed ?Type cholecalciferol (vitamin D3) 25 1,000 unit PO DAILY 07/03/19 01/17/25 History mcg (1,000 unit) capsule rivaroxaban 20 mg tablet (Xarelto) 20 mg PO HS 07/03/19 01/17/25 History magnesium 200 mg tablet 200 mg PO DAILY 10/29/20 01/17/25 History triamcinolone acetonide 0.1 % 1 applic topical BID PRN rash 09/09/22 01/17/25 Rx topical cream #453.6 grams glucose 4 gram chewable tablet 16 g (4 x 4 gram) PO Q15M PRN 12/29/22 01/17/25 Rx (Dex4 Glucose) hypoglycemia #60 tabs cyclobenzaprine 10 mg tablet 10 mg PO TID PRN muscle spasm #30 01/08/23 01/17/25 Rx tabs semaglutide 2 mg/dose (8 mg/3 mL) 2 mg (0.75 mL) subcut WEEKLY 90 10/27/23 01/17/25 Rx subcutaneous pen injector (Ozempic) days #9 mL glucagon 3 mg/actuation nasal spray 3 mg intranasal ONCE PRN 05/31/24 01/17/25 History Hypoglycemia insulin glargine 100 unit/mL (3 25 unit (0.25 mL) subcut HS #30 mL 09/18/24 01/17/25 Rx mL) subcutaneous pen (Lantus Solostar U-100 Insulin) atorvastatin 20 mg tablet See Rx Instructions .Route 09/20/24 01/17/25 Rx .COMPLEX #90 tabs dapagliflozin propanediol 10 mg 10 mg PO DAILY #90 tabs 10/03/24 01/17/25 Rx tablet (Farxiga) metformin 500 mg tablet,extended 500 mg PO BID 90 days #180 tabs 11/07/24 01/17/25 Rx release 24 hr lisinopril 20 mg tablet See Rx Instructions .Route 01/03/25 01/17/25 Rx .COMPLEX #90 tabs metoprolol succinate 100 mg 100 mg PO BID 01/17/25 01/17/25 History tablet,extended release 24 hr pen needle, diabetic 31 gauge x 1 ea miscellaneous DAILY #100 ea 01/18/25 Rx 12/15 Sleep Procedure The sleep study was completed using [employer] (formerly [employer]T a technically adequate device with seven channels: peripheral arterial tone, actigraphy, body position, snore, respiratory movement, pulse oximetry, sleep staging, and heart rate. Prior to using the device, the patient received verbal and written instructions for its application and was provided with the help desk phone number for additional telephonic instruction with 24-hour availability of qualified personnel to answer questions. The study was scored using CMS guidelines. Sleep Architecture The total recording time is 8 hrs, 9 min. The total sleep time is 6 hrs, 16 min. Sleep latency is 22 minutes. REM latency is 32 minutes. The patient had 12 episodes of waking. Sleep architecture shows 17.4% deep sleep, 59.6% light sleep, and (as % Total Sleep Time) showed NREM (Light 59.6%; Deep 17.4%), and a 23.0% stage REM. The patient spent 63.7% of total sleep time in the supine position. Sleep efficiency was 76.89. Respiratory Analysis The overall AHI (pAHI 4%:) is 7.1. The overall AHI (pAHI 3%:) is 14.4. The central AHI is 0.2. The AHI was 10.4 in NREM and 27.9 in REM sleep. The AHI was 18.1 in Supine and 7.8 in Non-supine sleep. Percent of [place] respirations is 0.0. Oximetry Data The oxygen desaturation index (SUSIE 4%:) is 7.0. The mean saturation is 94%, and the lowest saturation is 86%. Time spent with saturation < 88% is 0.8 minutes. Snoring Profile Snoring average intensity is 43 dB. The patient snored above 45 decibels for 82.1 minutes, 21.8% of sleep time. Cardiac Profile The average pulse rate is 85 beats per minutes. The lowest pulse rate is 72 bpm. The highest pulse rate reported is 102 bpm. Atrial fibrillation was not detected. Premature beats occur <0.1 per minute. Assessment and Plan Assessment and Plan (1) PAU (obstructive sleep apnea): Code(s): G47.33 - Obstructive sleep apnea (adult) (pediatric) Status: Acute Assessment and Plan: The patient had an overall AHI of 7.1 with desaturation down to 86%. This is consistent with mild sleep apnea. Due to the patient's diabetes, he qualifies for treatment. I recommend that the patient have a CPAP Titration with the use of a hypnotic to ensure we obtain enough sleep data and find an optimal pressure setting. Data The data obtained during this sleep study is adequate for interpretation. Certification This sleep study has been reviewed by a board certified sleep medicine physician.
[2025-01-23 12:15] VITALS: BMI 30.4
== END 2025-01-04 09:35 | disposition home or self-care (01) ==
LOC: ANHCSM 08:09
PROVIDERS: PCP Family Medicine; Visit Provider Family Medicine
DX: G47.30 Sleep apnea, unspecified (principal); G47.33 Obstructive sleep apnea (adult) (pediatric)
CPT/HCPCS: 95800